=== PATIENT | female | born 1945 | race Asian ===

== ENCOUNTER 2017-12-12 12:35 | Emergency (ER) | payer SELFPAY ==
[~2017-12-12] VITALS: Ht 149.9 cm; Wt 45.4 kg
[2017-12-12 12:45] VITALS: BP 89/55
--- NOTE | 2017-12-12 12:56 | Emergency Room Report ---
History of Present Illness General Chief Complaint: Alcohol Intoxication Source: Patient Present Illness HPI This patient is an elderly [place] female who presents with altered mental status. Bystander at festival in [facility] noticed patient to be slumped over and unresponsive. She gave unintelligible hx to EMS. Half empty bottle of Vodka found in patient's backpack. No ID discovered. Patient will not provide hx here in ED even with language interpretation Allergies: Coded Allergies: UNABLE TO ASSESS (Unverified , 12/12/17) Nursing Documentation-PMH Past Medical History: No Stated History Review of Systems All Other Systems: limited - due to AMS Physical Exam Vital Signs Date Time Temp Pulse Resp B/P (MAP) Pulse Ox O2 Delivery O2 Flow Rate FiO2 12/12/17 12:25 97.8 90 17 89/55 97 Room Air 97.9 Sp02 EP Interpretation: reviewed, normal General Appearance: normal inspection, no apparent distress, other - seems drowsy but protecting airway Eyes: bilateral eye normal inspection, bilateral eye PERRL ENT: moist mucus membranes Neck: normal inspection, full range of motion, supple Respiratory: chest non-tender, lungs clear, normal breath sounds, no rhonchi, no respiratory distress, no retraction Cardiovascular #1: normal inspection, normal peripheral pulses, regular rate, rhythm, no edema, no gallop, no JVD, no murmur Gastrointestinal: normal inspection, non tender, soft Neurologic: other - purposeful movement but does not follow commands Psychiatric: other - nonverbal Skin: normal inspection, normal color, no rash Medical Decision Making Diagnostic Impression: Primary Impression: Acute alcoholic intoxication Additional Impression: Altered mental state ER Course THis patient presents without identification in altered state due to acute alcohol intoxication, discovered at a festival in [facility]. My colleague will determine disposition once patient is sober. CT head negative for acute process Labs Test 12/12/17 13:06 White Blood Count 9.6 K/UL (4.8-10.8) Red Blood Count 4.22 M/UL (4.20-5.40) Hemoglobin 13.2 G/DL (12.0-16.0) Hematocrit 37.8 % (37.0-47.0) Mean Corpuscular Volume 90 FL (80-99) Mean Corpuscular Hemoglobin 31.3 PG (27.0-31.0) Mean Corpuscular Hemoglobin Concent 35.0 G/DL (32.0-36.0) Red Cell Distribution Width 11.2 % (11.6-14.8) Platelet Count 229 K/UL (150-450) Mean Platelet Volume 7.7 FL (6.5-10.1) Neutrophils (%) (Auto) 61.4 % (45.0-75.0) Lymphocytes (%) (Auto) 27.0 % (20.0-45.0) Monocytes (%) (Auto) 7.6 % (1.0-10.0) Eosinophils (%) (Auto) 3.2 % (0.0-3.0) Basophils (%) (Auto) 0.8 % (0.0-2.0) Sodium Level 136 MMOL/L (136-145) Potassium Level 3.6 MMOL/L (3.5-5.1) Chloride Level 99 MMOL/L (98-107) Carbon Dioxide Level 22 MMOL/L (21-32) Anion Gap 15 mmol/L (5-15) Blood Urea Nitrogen 23 mg/dL (7-18) Creatinine 0.7 MG/DL (0.55-1.30) Estimat Glomerular Filtration Rate mL/min (>60) Glucose Level 180 MG/DL (74-106) Calcium Level 8.7 MG/DL (8.5-10.1) Serum Alcohol 323 mg/dL Lab Results Impression severe alcohol intoxication Last Vital Signs Date Time Temp Pulse Resp B/P (MAP) Pulse Ox O2 Delivery O2 Flow Rate FiO2 12/12/17 12:25 97.8 90 17 89/55 97 Room Air 97.9 Condition: Stable Signed Out To: Millicent Singleton MD Dec 12, 2017 12:56
[2017-12-12 13:30] VITALS: BP 91/46
[2017-12-12 13:48] LABS: BASOPHILS % (AUTO) 0.8 % (0.0-2.0); EOSINOPHILS % (AUTO) 3.2 % (0.0-3.0); HEMATOCRIT 37.8 % (37.0-47.0); HEMOGLOBIN 13.2 G/DL (12.0-16.0); MEAN CORPUSCULAR VOLUME 90 FL (80-99); MONOCYTES % (AUTO) 7.6 % (1.0-10.0); NEUTROPHILS % (AUTO) 61.4 % (45.0-75.0); PLATELET COUNT 229 K/UL (150-450); RED BLOOD COUNT 4.22 M/UL (4.20-5.40); RED CELL DISTRIBUTION WIDTH 11.2 % (11.6-14.8); WHITE BLOOD COUNT 9.6 K/UL (4.8-10.8)
[2017-12-12 13:54] LABS: ANION GAP 15 mmol/L (5-15); BLOOD UREA NITROGEN 23 mg/dL (7-18); CALCIUM 8.7 MG/DL (8.5-10.1); CARBON DIOXIDE 22 MMOL/L (21-32); CHLORIDE 99 MMOL/L (98-107); CREATININE 0.7 MG/DL (0.55-1.30); POTASSIUM 3.6 MMOL/L (3.5-5.1); SODIUM 136 MMOL/L (136-145)
--- NOTE | 2017-12-12 13:57 | Diagnostic Imaging Report ---
. Indication: Altered level of consciousness Technique: spiral acquisitions obtained through the brain. Angled axial and coronal 5 x 5 mm slices were reconstructed. No IV contrast utilized. Radiation dose was minimized using automated exposure control Total dose length product 1316.21 mGycm. CTDIvol(s) 70.38 mGy Comparison: none FINDINGS: No acute hemorrhage or edema. No mass effect or midline shift. There is age-related enlargement of the ventricles and extra axial CSF spaces. There is minimal periventricular deep white matter ischemic change. Normal oreilly-white differentiation. Visualized orbits are unremarkable. There is considerable ethmoid sinus mucosal thickening, as well as minimal sphenoid sinus mucosal thickening. Intact calvarium. IMPRESSION: Chronic and age-related changes. Negative for acute intracranial bleed or mass effect The CT scanner at [facility] is accredited by the [employer] and the scans are performed using protocols designed to limit radiation exposure to as low as reasonably achievable to attain images of sufficient resolution adequate for diagnostic evaluation
[2017-12-12 14:30] VITALS: BP 102/50
[2017-12-12 14:45] VITALS: BP 89/54
[2017-12-12 16:00] VITALS: BP 105/61
== END 2017-12-12 16:00 | disposition home or self-care (01) ==
LOC: EDBD 12:35 → EMR 13:15
DX: F10.129 Alcohol abuse with intoxication, unspecified (principal); R41.82 Altered mental status, unspecified
CPT/HCPCS: 36415; 70450; 80048; 85025; 96360; 99284; G0480; 80329